=== PATIENT | male | born 1985 | race Caucasian/White ===

== ENCOUNTER 2018-11-17 10:49 | Emergency (ER) | payer OTHER ==
[2018-11-17 11:08] VITALS: BP 126/71
--- NOTE | 2018-11-17 11:27 | UC ---
Complaint Male HPI - HPI Summary HPI Summary: 33 year old male with testicular concern. c/o R testicular and groin pain that travels up into his R lower abdominal area for the past 2 days. He denies fever , N/V/D, any discharge from penis or painful urination. Denies any bulging in the R side of his abd/groin. He does state pain in his testicle when touched. He had right sided inguinal hernia repair at age 8. He did "tweak" his right inguinal area about 4 weeks ago he states. Rest improves symptoms and exertion worsens symptoms [ End ] - History of Current Complaint Chief Complaint: UCGU Stated Complaint: ABD/GROIN PAIN Time Seen by Provider: 11/17/18 11:17 Hx Obtained From: Patient Onset/Duration: Gradual Onset Timing: Constant Severity Initially: Mild Severity Currently: Moderate Pain Intensity: 4 Location: Testicle - Allergies/Home Medications Allergies/Adverse Reactions: Allergies Allergy/AdvReac Type Severity Reaction Status Date / Time No Known Allergies Allergy Verified 11/17/18 11:08 Home Medications: Home Medications Meloxicam 7.5 mg PO DAILY 11/17/18 [History Confirmed 11/17/18] PMH/Surg Hx/FS Hx/Imm Hx Previously Healthy: Yes - Surgical History Surgical History: Yes Surgery Procedure, Year, and Place: L hernia repair - Family History Known Family History: Positive: Cardiac Disease, Hypertension - Social History Occupation: Employed Full-time Lives: With Family Alcohol Use: None Substance Use Type: None Smoking Status (MU): Never Smoked Tobacco Type: Cigarettes Amount Used/How Often: 1 ppd Length of Time of Smoking/Using Tobacco: since age 11 Have You Smoked in the Last Year: Yes Review of Systems All Other Systems Reviewed And Are Negative: Yes Genitourinary: Positive: Other - groin and testicular pain. Negative: Dysuria, Hematuria, Frequency, Urgency, Vaginal/Penile Burning, Vaginal/Penile Itching, Vaginal/Penile Discharge, Vaginal/Penile Pain, Vaginal/Penile Tenderness, Ulceration/Lesion Physical Exam Triage Information Reviewed: Yes Appearance: Well-Appearing, No Pain Distress, Well-Nourished Vital Signs: Initial Vital Signs Temp 98.3 F 11/17/18 10:57 Pulse 73 11/17/18 10:57 Resp 15 11/17/18 10:57 BP 126/71 11/17/18 10:57 Pulse Ox 98 07/25/19 10:57 Vital Signs Reviewed: Yes Eye Exam: Normal ENT Exam: Normal Neck: Positive: 1 Respiratory Exam: Normal Cardiovascular Exam: Normal Abdominal Exam: Normal Male Genital Exam: Positive: Normal Genitalia, Inguinal Tenderness - Right, Scrotum Tenderness (R), Testicular Tenderness (R) Musculoskeletal Exam: Normal Neurological Exam: Normal Psychological Exam: Normal Skin Exam: Normal Complaint Male Course/Dx - Course Course Of Treatment: Based on symptoms sono was ordered. no acute concerns. based on exam dx with inguinal hernia and refer to general surgery he is aware to go there GURU and if Sx worsen then to go to ED where they have surgeon it architecture consultant . at this time Sx minimal and no acute abdomen and the hernia is reducible, non strangulated, normal color and little to no tenderness to palpation. pt and gf aware and agree to plan - Differential Dx/Diagnosis Differential Diagnosis/HQI/PQRI: Epididymitis, Testicular Torsion, Other - inguinal hernia Provider Diagnosis: Right inguinal hernia Discharge - Sign-Out/Discharge Documenting (check all that apply): Patient Departure All imaging exams completed and their final reports reviewed: Yes - Discharge Plan Condition: Good Disposition: HOME Patient Education Materials: Inguinal Hernia (ED), Testicle Pain (ED) Forms: *Work Release Referrals: No Primary Care Phys,NOPCP [Primary Care Provider] - 4 Days Rubio Obrien MD [Medical Doctor] - (General Surgery referral ) Tomi Ribera [Medical Doctor] - 1 Day (General surgery referral in [place] ) Additional Instructions: Your sonogram did not reveal any acute concerns. No epididymitis or testicular torsion or masses were present - Billing Disposition and Condition Condition: GOOD Disposition: Home
== END 2018-11-17 12:42 | disposition home or self-care (01) ==
LOC: UCCORT 10:49
DX: K40.90 Unilateral inguinal hernia, without obstruction or gangrene, not specified as recurrent (principal)
CPT/HCPCS: 76870; 99211; G0463

== ENCOUNTER 2019-07-14 08:29 | Emergency (ER) | payer OTHER ==
[2019-07-14 09:02] VITALS: BP 141/85
--- NOTE | 2019-07-14 09:42 | UC ---
Eye Complaint HPI - HPI Summary HPI Summary: PATIENT WAS WELDING 4 DAYS AGO ON 07/10/2019. AFTER WORK HE DEVELOPED LEFT EYE IRRITATION, REDNESS AND CLEAR DRAINAGE. HAS FOREIGN BODY SENSATION AND MILD PHOTOPHOBIA. DESCRIBES OCCASIONAL BLURRY VISION. PAIN HAS NOT IMPROVED AND IN FACT FELT A LITTLE WORSE YESTERDAY. - History of Current Complaint Chief Complaint: UCEye Stated Complaint: W/C L EYE CONCERN Time Seen by Provider: 07/14/19 09:19 Hx Obtained From: Patient Onset/Duration: Sudden Onset, Lasting Days, Still Present Timing: Constant Severity Initially: Moderate Severity Currently: Moderate Pain Intensity: 4 Pain Scale Used: 0-10 Numeric Character: Foreign Body Sensation Aggravating Factor(s): Light, Blinking Alleviating Factor(s): Nothing Associated Signs And Symptoms: Positive: Photophobia, Drainage (Clear) - Allergies/Home Medications Allergies/Adverse Reactions: Allergies Allergy/AdvReac Type Severity Reaction Status Date / Time No Known Allergies Allergy Verified 07/14/19 09:02 Home Medications: Home Medications NK [No Home Medications Reported] 07/14/19 [History Confirmed 07/14/19] PMH/Surg Hx/FS Hx/Imm Hx Respiratory History: Asthma - Surgical History Surgical History: Yes Surgery Procedure, Year, and Place: L low abdominal hernia repair - Family History Known Family History: Positive: Cardiac Disease, Hypertension - Social History Alcohol Use: None Substance Use Type: Excessive Caffeine Smoking Status (MU): Heavy Every Day Tobacco Smoker Type: Cigarettes Amount Used/How Often: 1 ppd Length of Time of Smoking/Using Tobacco: since age 11 Have You Smoked in the Last Year: Yes - Immunization History Most Recent Tetanus Shot: UNKNOWN Review of Systems All Other Systems Reviewed And Are Negative: Yes Constitutional: Positive: Negative Eyes: Positive: Blurred Vision, Drainage, Photophobia ENT: Positive: Negative Respiratory: Positive: Negative Cardiovascular: Positive: Negative Physical Exam Triage Information Reviewed: Yes Appearance: Well-Appearing, No Pain Distress, Well-Nourished Vital Signs: Initial Vital Signs Temp 98.5 F 07/14/19 08:48 Pulse 93 07/14/19 08:48 Resp 18 07/14/19 08:48 BP 141/85 07/14/19 08:48 Pulse Ox 97 07/14/19 08:48 Vital Signs Reviewed: Yes Eyes: Positive: Conjunctiva Clear ENT: Positive: Hearing grossly normal Neck: Positive: Supple Respiratory: Positive: No respiratory distress, No accessory muscle use Cardiovascular: Positive: Pulses Normal Abdomen Description: Positive: Soft Musculoskeletal: Positive: No Edema Neurological: Positive: Alert Psychological: Positive: Age Appropriate Behavior Skin: Negative: Rashes Eye Complaint Course/Dx - Course Course Of Treatment: NO FOREIGN BODY SEEN ON EXAM. GIVEN PATIENT HAS HAD SYMPTOMS FOR 4 DAYS THAT ARE SOMEWHAT WORSENING I FEEL HE WOULD BENEFIT FROM SPECIALIST EVALUATION. DR. YANEZ WITH OPHTHALMOLOGY HAS AGREED TO SEE HIM DIRECTLY. PATIENT WILL GO TO HER OFFICE STRAIGHT FROM HERE. - Differential Dx/Diagnosis Provider Diagnosis: Left eye pain Discharge ED - Sign-Out/Discharge Documenting (check all that apply): Patient Departure All imaging exams completed and their final reports reviewed: No Studies - Discharge Plan Condition: Stable Disposition: HOME Patient Education Materials: Eye Pain (ED) Referrals: Jen Yanez MD [Medical Doctor] - Jewel Mukherjee PA [Primary Care Provider] - If Needed Additional Instructions: GO DIRECTLY TO DR. YANEZ'S OFFICE FROM HERE (OPHTHALMOLOGY). SHE IS EXPECTING YOU. - Billing Disposition and Condition Condition: STABLE Disposition: Home
== END 2019-07-14 09:37 | disposition home or self-care (01) ==
LOC: UCCORT 08:29
DX: H57.12 Ocular pain, left eye (principal); H53.142 Visual discomfort, left eye; H53.8 Other visual disturbances; F17.210 Nicotine dependence, cigarettes, uncomplicated
CPT/HCPCS: 99212; G0463